=== PATIENT | female | born 1955 | race Caucasian/White ===

== ENCOUNTER 2022-01-14 16:56 | Emergency (ER) | payer OTHER, MEDICARE | END 2022-01-14 18:30 | disposition home or self-care (01) | LOC: NAV ERS 16:56 | DX: S43.402A Unspecified sprain of left shoulder joint, initial encounter (principal); S40.022A Contusion of left upper arm, initial encounter; E78.5 Hyperlipidemia, unspecified; I10 Essential (primary) hypertension; Z79.899 Other long term (current) drug therapy; W19.XXXA Unspecified fall, initial encounter ==